=== PATIENT | female | born 1965 | race American Indian/Alaskan Native ===

== ENCOUNTER 2016-04-02 10:08 | Outpatient (CLI) | payer BC ==
[2016-04-02 10:21] LABS: Hematocrit 44.6 % (30.3-42.9); Hemoglobin 14.6 gm/dl (10.1-14.3); Mean Corpuscular HGB Conc 33 % (30-34); Mean Corpuscular Hemoglobin 29 pg (28-32); Mean Corpuscular Volume 89 fl (79-97); Platelet Count 287 K/mm3 (140-440); Red Blood Count 5.04 M/mm3 (3.65-5.03); Red Cell Distribution Width 13.9 % (13.2-15.2); White Blood Count 9.7 K/mm3 (4.5-11.0)
[2016-04-02 10:40] LABS: Albumin 4.1 g/dL (3.9-5); Albumin/Globulin Ratio 1.3 %; BUN/Creatinine Ratio 16.87; Bilirubin,Total 0.2 mg/dL (0.1-1.2); Calcium 9.2 mg/dL (8.4-10.2); Chloride 102.5 mmol/L (98-107); Potassium 5.2 mmol/L (3.6-5.0); Total Protein 7.3 g/dL (6.3-8.2)
== END 2016-04-02 10:09 | disposition home or self-care (01) ==
LOC: LABHHL 10:08
PROVIDERS: ATTEND Specialist
DX: Z01.812 Encounter for preprocedural laboratory examination (principal); K30 Functional dyspepsia
CPT/HCPCS: 36415; 80053; 83690; 85027

== ENCOUNTER 2016-04-07 07:13 | Day surgery (SDC) | payer BC, OTHER ==
[~2016-04-07 07:13] MED LIST: WATER FOR IRRIG STERILE IR ONE
[2016-04-07] MEDS ORDERED: DIPRIVAN 10 MG/ML IV ONE ×3 (07:30→07:37)
[2016-04-07] MEDS ORDERED: NACL 0.9% 1000 ML 1,000 ML IV SCH (08:00)
--- NOTE | 2016-04-07 08:30 | Anesthesia Consultation ---
Anesthesia Consult and Med Hx Date of service: 04/07/16 - Airway Anesthetic Teeth Evaluation: Good ROM Head & Neck: Adequate Mental/Hyoid Distance: Inadequate Mallampati Class: Class II Intubation Access Assessment: Probably Good - Pulmonary Exam CTA: Yes - Cardiac Exam Cardiac Exam: RRR - Pre-Operative Health Status ASA Pre-Surgery Classification: ASA3 Proposed Anesthetic Plan: MAC - Pulmonary Hx Smoking: Yes (Quit 30yrs ago ) - Cardiovascular System Hx Hypertension: Yes - Central Nervous System Hx Psychiatric Problems: No - Gastrointestinal Hx Ulcer: Yes (12/2012, DR. 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
--- NOTE | 2016-04-07 08:31 | Anesthesia Day of Surgery ---
Anesthesia Day of Surgery - Day of Surgery Patient Examined: Yes Patient H&P Reviewed: Yes Patient is NPO: Yes
[2016-04-07] MEDS ORDERED: XYLOCAINE MPF 2% ONE (09:33)
[2016-04-07 10:08] VITALS: BP 108/68
--- NOTE | 2016-04-07 10:42 | Post Anesthesia Evaluation ---
- Post Anesthesia Evaluation Patient Participated: Yes Airway Patent: Yes Stable Respiratory Function: Yes Nausea/Vomiting: No Temp > 96.8F: Yes Pain Manageable: Yes Adequeate Hydration: Yes Anesthesia Complications: No Block Receding Appropriately: Not Applicable Patient on Ventilator: No
== END 2016-04-07 07:14 | disposition home or self-care (01) ==
LOC: GIO 07:13
PROVIDERS: ATTEND Specialist
DX: K21.0 Gastro-esophageal reflux disease with esophagitis (principal); K44.9 Diaphragmatic hernia without obstruction or gangrene; I10 Essential (primary) hypertension; E03.9 Hypothyroidism, unspecified; E78.00 Pure hypercholesterolemia, unspecified; E66.01 Morbid (severe) obesity due to excess calories; Z68.36 Body mass index [BMI] 36.0-36.9, adult; Z90.710 Acquired absence of both cervix and uterus; Z98.890 Other specified postprocedural states; Z87.891 Personal history of nicotine dependence; Z82.49 Family history of ischemic heart disease and other diseases of the circulatory system; Z82.3 Family history of stroke
CPT/HCPCS: 43235; J2704; J7030

== ENCOUNTER 2016-04-14 06:47 | Inpatient (IN) | payer BC, MEDICARE ==
--- NOTE | 2016-04-07 11:16 | Anesthesia Consultation ---
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 ALLEN- GI) Hx Gastroesophageal Reflux Disease: Yes - Endocrine Hx Renal Disease: Yes (Elevated labs, r/t BP meds, - FIELD SALES CONSULTANT) Hx Hypothyroidism: Yes - Other Systems Hx Cancer: No
[2016-04-07 11:52] LABS: Basophils % (Auto) 0.4 % (0.0-1.8); Hematocrit 43.6 % (30.3-42.9); Hemoglobin 14.2 gm/dl (10.1-14.3); Mean Corpuscular HGB Conc 33 % (30-34); Mean Corpuscular Hemoglobin 29 pg (28-32); Mean Corpuscular Volume 88 fl (79-97); Platelet Count 261 K/mm3 (140-440); Red Blood Count 4.97 M/mm3 (3.65-5.03); Red Cell Distribution Width 13.6 % (13.2-15.2); White Blood Count 10.1 K/mm3 (4.5-11.0)
[2016-04-07 12:27] LABS: Albumin/Globulin Ratio 1.3 %; BUN/Creatinine Ratio 16.66; Bilirubin,Total 0.3 mg/dL (0.1-1.2); Calcium 9.4 mg/dL (8.4-10.2); Chloride 102.6 mmol/L (98-107); Potassium 4.4 mmol/L (3.6-5.0); Total Protein 7.1 g/dL (6.3-8.2)
--- NOTE | 2016-04-13 15:52 | Admit Criteria Form ---
Admission Criteria Documentation: AMBULATORY SURGERY EXCEPTION CRITERIA Ambulatory Surgery Exception Criteria ( Place 'X' for any and all applicable criteria): Surgery or procedure performed on ambulatory basis may require inpatient stay for[A] ANY ONE of the following(1)(2)(3)(4)(5)(6)(7)(8)(9): [X] I. A preoperative situation, condition, or finding that warrants inpatient stay as indicated by ANY ONE of the following: [X] a) Inpatient care needed because of severity of a disease or condition rather than the surgery (eg, severe cardiac or respiratory disease, severe infection) (15) (16 ) (17) (18) [] b) Emergent procedure (eg, angioplasty for acute ischemia)(19) [] c) Complex surgical approach or situation as indicated by ANY ONE of the following(3): [] i) Open approach needed instead of usual endoscopic, transcatheter, or other less invasive procedure [] ii) Difficult approach because of previous operation [] iii) Airway monitoring required after open neck procedures(20)(21) [] iv) Large mass requiring unusually extensive dissection [] v) Additional complicating feature requiring inpatient care (eg, drain management)(22(23): [] d) Major surgery in a pt with high anesthetic risk as indicated by ANY ONE of the following (2)(3)(5)(7)(8): [] i) ASA risk class III or higher (severe systemic disease impairing function) [D] [] ii) Advanced age (eg, older than 85 years)(14)(24) [] iii) Symptomatic heart failure(25) [] iv) Symptomatic asthma or COPD(8)(21) [] v) Morbid obesity with hemodynamic or respiratory problems(20)( 21)(26)(27) [] vi) Obstructive sleep apnea(20)(21) [] vii) Former premature infants who are younger than 60 weeks [] viii) High risk for severe postoperative abnormalities (eg, severe postoperative hypocalcemia after parathyroidectomy for severe hyperparathyroidism)(27)( 28) [] ix) Unstable angina(25) [] e) Drug-related risk requiring inpatient stay as indicated by ANY ONE of the following(5)(10)(14)(32)(33) [] i) Procedure requires discontinuing drugs or other therapy (eg , antiarrhythmic medication, antiseizure medication), which necessitates inpatient observation or treatment.(18)(31) [] ii) Major surgery and high risk drug use as indicated by ANY ONE of the following: [] 1) Active abuse of cocaine or similar drug [] 2) Monoamine oxidase inhibitor use [] 3) Other drug identified as posing risk [] f) Inadequate outpatient care situation as indicated by ANY ONE of the following(5)(10)(14)(32)(33) [] i) Patient lives remote from medical facility and procedure has urgent complication potential, and temporary nearby residence cannot be arranged [] ii) Patient will have postprocedure incapacitation and inadequate assistance at home, or alternative level of care cannot be arranged. [] iii) Patient will have long general anesthesia or procedure side effect resolution time, and competent person to stay with patient on first postoperative night at home or alternative level of care cannot be arranged. []iv) Other inadequate outpatient situation that cannot be handled by other means [] II. A perioperative event, condition, or finding that warrants inpatient stay as indicated by ANY ONE of the following (1)(2)(3): [] a) Inadequate physiologic recovery: cardiovascular, respiratory, or hemodynamic status not normal or near preoperative baseline(18) [] b) Hemodynamic instability [] c) Patient not alert with near normal or baseline mental status [] d) Temperature not normal or as expected and not appropriate for outpatient treatment of condition [] e) Ambulatory or appropriate activity level status not yet achieved post procedure [E](34)(35)(36) [] f) Operative site not appropriate (eg, unexpected or excessive drainage or bleeding) [] g) Postoperative effects not resolved or adequately managed (eg, significant pain or vomiting not appropriate for outpatient or next level of care)(10)(12) [] h) Complicating features requiring inpatient care as indicated by ANY ONE of the following(37): [] i) Severe complications of procedure (eg, bowel injury, airway compromise, vascular injury,severe hemorrhage) [] ii) Extensive (eg, dissection far beyond usual scope of procedure ) or prolonged (eg, 120 minutes beyond usual) surgery needed requiring inpatient postoperative care [] iii) Conversion to an open or complex procedure that requires inpatient care (eg, open vs laparoscopic cholecystectomy, abdominal vs vaginal hysterectomy)(38) [] iv) Comorbid condition or test result identified during or post procedure that requires inpatient care (7) [] v) Malignant hyperthermia(30) [] vi) Other complicating feature requiring inpatient care(22)(23) Inpatient stay may be needed until ALL of the following are present (1)(2)(3)(4) (5)(6)(10)(14)(33)(40): []a) Physiologic recovery: cardiovascular, respiratory, and hemodynamic status normal or near preoperative baseline []b) Hemodynamic stability []c) Patient alert, with near normal or baseline mental status []d) Temperature appropriate: patient afebrile or temperature appropriate for outpt treatment of condition []e) Activity level appropriate: ambulatory or appropriate activity level post procedure []f) Operative site appropriate as indicated by ALL of the following: []i) Site dry or with expected drainage []ii) Any blood noted is as expected for procedure. []g) Postoperative effects resolved or managed as indicated by ALL of the following: []i) Pain management appropriate for outpatient (or next level of) care(10) []ii) Minimal nausea and vomiting: if present, successfully treated with oral medication(12) []iii) Headache, dizziness, or drowsiness (if present) are mild. []h) Voiding status acceptable as indicated by ANY ONE of the following: []i) Voiding spontaneously []ii) No voiding but instructions given for follow-up in 6 to 8 hours []iii) Urinary catheter in place, and instructions given for follow-up []i) Complicating features requiring inpatient care manageable at a lower level of care(37) []j) Comorbid conditions manageable at a lower level of care(37) The original [employer] content created by [employer] has been revised. The portions of the content which have been revised are identified through the use of italic text or in bold, and [employer] has neither reviewed nor approved the modified material. All other unmodified content is copyright [employer]. Please see references footnoted in the original [employer] edition 2016 Admission Criteria Met: Yes
[~2016-04-14 06:47] MED LIST changes: +MARCAINE-EPI 0.5%-1:200,000 INFILTRATI ONE; +NACL 0.9% IR ONE; -WATER FOR IRRIG STERILE IR ONE; +XYLOCAINE 1% 20 mL INFILTRATI ONE
[2016-04-14] MEDS ORDERED: PEPCID IV NR (07:00)
[2016-04-14] MEDS ORDERED: NACL 0.9% 1000 ML 1,000 ML IV SCH (07:00)
[2016-04-14] MEDS ORDERED: VERSED IV NR (07:00)
[2016-04-14] MEDS ORDERED: TRANSDERM-SCOP TD NR (09:00)
[2016-04-14] MEDS ORDERED: ANCEF/STERILE WATER 2 GM/20 ML 2 GM/20 ML SYRINGE IV SCH (13:14)
[2016-04-14] MEDS ORDERED: NORCO 5/325 PO PRN (13:45)
[2016-04-14] MEDS ORDERED: FLAGYL 500 MG/100 ML 500 MG/100 ML BAG IV NR (14:00)
[2016-04-14] MEDS ORDERED: LOVENOX SUB-Q NR (14:00)
--- NOTE | 2016-04-14 14:02 | Anesthesia Day of Surgery ---
Anesthesia Day of Surgery - Day of Surgery Patient Examined: Yes Patient H&P Reviewed: Yes Patient is NPO: Yes Beta Blockers: Yes (tooklast night, will treat as appropriate in OR))
[2016-04-14] MEDS ORDERED: DIPRIVAN 10 MG/ML IV ONE (14:07)
[2016-04-14] MEDS ORDERED: DILAUDID ONE (14:08)
[2016-04-14] MEDS ORDERED: ZEMURON IV ONE ×2 (14:11→16:01)
[2016-04-14] MEDS ORDERED: XYLOCAINE MPF 2% ONE (14:11)
[2016-04-14] MEDS ORDERED: NACL 0.9% IR ONE (15:41)
[2016-04-14] MEDS ORDERED: ePHEDrine SULFATE ONE (15:55)
[2016-04-14] MEDS ORDERED: NACL 0.9% 1000 ML 1,000 ML ONE (16:01)
[2016-04-14] MEDS ORDERED: MARCAINE-EPI 0.5%-1:200,000 INFILTRATI ONE (16:30)
[2016-04-14] MEDS ORDERED: XYLOCAINE 1% 20 mL INFILTRATI ONE (16:30)
[2016-04-14] MEDS ORDERED: ZOFRAN ONE (16:36)
[2016-04-14] MEDS ORDERED: BLOXIVERZ ONE (16:36)
[2016-04-14] MEDS ORDERED: ROBINUL ONE (16:36)
[2016-04-14] MEDS: DILAUDID IV PRN ×7 (17:12→19:57)
--- NOTE | 2016-04-14 17:34 | Post Anesthesia Evaluation ---
- Post Anesthesia Evaluation Patient Participated: Yes Airway Patent: Yes Stable Respiratory Function: Yes Temp > 96.8F: Yes Pain Manageable: Yes Adequeate Hydration: Yes Anesthesia Complications: No Block Receding Appropriately: Not Applicable
[2016-04-14] MEDS: ZOFRAN IV PRN (18:21)
[2016-04-14] MEDS: LOVENOX SUB-Q SCH (21:57)
[2016-04-14] MEDS: TORADOL IV SCH (23:00)
[2016-04-15] MEDS: LACTATED RINGERS 1,000 ML IV SCH ×2 (00:21→10:36)
[2016-04-15] MEDS: DILAUDID IV PRN ×4 (01:00→12:35)
[2016-04-15 03:40] LABS: Bilirubin,Urine NEG (Negative); Blood,Urine NEG (Negative); Ketones,Urine 20 mg/dL (Negative); Leukocyte Esterase,Urine NEG (Negative); Mucus,Urine FEW /HPF; Nitrite,Urine NEG (Negative); Protein,Urine <15 mg/dL mg/dL (Negative); Urobilinogen,Urine < 2.0 mg/dL (<2.0)
[2016-04-15] MEDS: ZOFRAN IV PRN ×2 (04:13→09:50)
[2016-04-15 06:53] LABS: Magnesium 2.1 mg/dL (1.7-2.3); Phosphorous 4.2 mg/dL (2.5-4.5)
[2016-04-15] MEDS: TORADOL IV SCH (07:11)
[2016-04-15] MEDS: LOVENOX SUB-Q SCH (10:37)
[2016-04-15 10:39] LABS: Basophils % (Auto) 0.2 % (0.0-1.8); Eosinophils % (Auto) 0.1 % (0.0-4.3); Hematocrit 38.8 % (30.3-42.9); Hemoglobin 12.5 gm/dl (10.1-14.3); Mean Corpuscular HGB Conc 32 % (30-34); Mean Corpuscular Hemoglobin 29 pg (28-32); Mean Corpuscular Volume 88 fl (79-97); Platelet Count 203 K/mm3 (140-440); Red Blood Count 4.39 M/mm3 (3.65-5.03); Red Cell Distribution Width 14.2 % (13.2-15.2); White Blood Count 10.7 K/mm3 (4.5-11.0)
[2016-04-15 11:04] LABS: Albumin 3.5 g/dL (3.9-5); Albumin/Globulin Ratio 1.3 %; BUN/Creatinine Ratio 12.85; Bilirubin,Total 0.4 mg/dL (0.1-1.2); Calcium 8.4 mg/dL (8.4-10.2); Chloride 102.4 mmol/L (98-107); Potassium 4.2 mmol/L (3.6-5.0); Total Protein 6.3 g/dL (6.3-8.2)
[2016-04-15 12:36] VITALS: BP 183/85
--- NOTE | 2016-04-15 13:27 | Discharge Summary ---
Providers - Providers Date of Admission: 04/14/16 09:30 Date of discharge: 04/15/16 Attending physician: JANEL GARDNER Primary care physician: ALICIA CUMMINGS Hospitalization Reason for admission: Post op observation Condition: Stable Hospital course: Patient admited for overnight observation after surgery tolerating bariatric stage 1 diet and ambulating ready for discharge Disposition: DISCHARGED TO HOME OR SELFCARE Core Measure Documentation - Palliative Care Palliative Care/ Comfort Measures: Not Applicable - Core Measures Any of the following diagnoses?: none Exam - Constitutional Vitals: Temp Pulse Resp BP Pulse Ox 98.8 F 71 18 183/85 100 04/15/16 12:34 04/15/16 12:34 04/15/16 12:34 04/15/16 12:34 04/15/16 08:51 General appearance: Present: no acute distress, well-nourished - Respiratory Respiratory effort: normal Respiratory: bilateral: CTA - Cardiovascular Heart Sounds: Present: S1 & S2. Absent: rub, click - Abdominal General gastrointestinal: Present: other (soft, wounds c/d/i. TTP around wounds) - Neurologic Neurologic: CNII-XII intact, moves all extremities Plan Activity: other (no heavy lifting) Diet: other (bariatric stage 1) Wound: open to air Special Instructions: no heavy lifting Follow up with: ALICIA CUMMINGS MD [Primary Care Provider] - 7 Days
== END 2016-04-15 15:00 | disposition home or self-care (01) | DRG 621 ==
LOC: 3A 09:30 → 2B-SURG 17:13
PROVIDERS: ADMIT Specialist; ATTEND Specialist
PROC: 0DB64Z3 Excision of Stomach, Percutaneous Endoscopic Approach, Vertical (ICD-10-PCS; principal; 2016-04-14)
PROC: 0BQR4ZZ (ICD-10-PCS; 2016-04-14)
PROC: 0BQS4ZZ (ICD-10-PCS; 2016-04-14)
DX: E66.01 Morbid (severe) obesity due to excess calories (principal); K44.9 Diaphragmatic hernia without obstruction or gangrene; I10 Essential (primary) hypertension; E78.00 Pure hypercholesterolemia, unspecified; E03.9 Hypothyroidism, unspecified; K21.9 Gastro-esophageal reflux disease without esophagitis; Z88.6 Allergy status to analgesic agent; Z91.012 Allergy to eggs; Z98.890 Other specified postprocedural states; Z90.710 Acquired absence of both cervix and uterus; Z68.37 Body mass index [BMI] 37.0-37.9, adult; Z82.49 Family history of ischemic heart disease and other diseases of the circulatory system; Z82.3 Family history of stroke; Z87.891 Personal history of nicotine dependence; Z79.899 Other long term (current) drug therapy
CPT/HCPCS: 36415; 80053; 81001; 83735; 84100; 85025; 88304; 88307; 88342; 94760; C9250; J0690; J1170; J1650; J1885; J2250; J2405; J2704; J2710; J7030; J7120

== ENCOUNTER 2017-05-13 18:02 | Emergency (ER) | payer BC, MEDICARE ==
[2017-05-13 20:52] LABS: Basophils % (Auto) 0.6 % (0.0-1.8); Eosinophils # (Auto) 0.2 K/mm3 (0.0-0.4); Eosinophils % (Auto) 3.5 % (0.0-4.3); Hematocrit 41.7 % (30.3-42.9); Hemoglobin 13.6 gm/dl (10.1-14.3); Lymphocytes # (Auto) 2.1 K/mm3 (1.2-5.4); Lymphocytes % (Auto) 30.9 % (13.4-35.0); Mean Corpuscular HGB Conc 33 % (30-34); Mean Corpuscular Hemoglobin 30 pg (28-32); Mean Corpuscular Volume 91 fl (79-97); Monocytes # (Auto) 0.6 K/mm3 (0.0-0.8); Monocytes % (Auto) 8.9 % (0.0-7.3); Platelet Count 243 K/mm3 (140-440); Red Blood Count 4.61 M/mm3 (3.65-5.03)
[2017-05-13] MEDS ORDERED: ALUM-MAG HYDROX-SIMETH 200-200-20MG/5ML PO ONE (21:00)
[2017-05-13] MEDS ORDERED: LIDOCAINE VISCOUS 2% PO ONE (21:00)
[2017-05-13] MEDS ORDERED: ZOFRAN IV ONE (21:01)
[2017-05-13] MEDS ORDERED: DILAUDID IM ONE (21:01)
[2017-05-13 23:01] LABS: Bilirubin,Urine NEG (Negative); Blood,Urine NEG (Negative); Color,Urine Yellow (Yellow); Mucus,Urine FEW /HPF; Protein,Urine <15 mg/dL mg/dL (Negative); Urobilinogen,Urine < 2.0 mg/dL (<2.0)
--- NOTE | 2017-05-13 23:32 | Cat Scan Report ---
FINAL REPORT PROCEDURE: CT ABDOMEN PELVIS WO CON TECHNIQUE: Computerized axial tomography of the abdomen and pelvis was performed without intravenous contrast. This study is performed without intravascular contrast material and its sensitivity for abdominal and pelvic pathology, including neoplasms, inflammation, abscess, free fluid, thrombosis, arterial dissection and infarction, is reduced compared with a contrast enhanced study. HISTORY: epigastric pain, hx of sayda and gastric sleeve COMPARISON: No prior studies are available for comparison. FINDINGS: Visualized lower thorax: No significant abnormality. Liver: The liver size is normal. There are few cysts identified within the liver. 2.5 centimeters cyst in the lateral upper right lobe of the liver is noted. 1.2 centimeters cyst identified in the anterior left lobe of the liver.. Spleen: Normal size and attenuation. Gallbladder and biliary system: The gallbladder is absent. No dilatation of the biliary ductal system. Pancreas: Normal. Adrenals: Normal. Kidneys: Both kidneys have a normal size. No hydronephrosis. 1 centimeter right renal cortical cysts suspected off the inferior right renal cortex. GI tract: The stomach shows evidence of previous surgery. The small bowel has a normal caliber without obstruction. Oral contrast reaches the colon. There is moderate fecal debris throughout the colon. The colon is slightly distended. Constipation is suspected.. Lymph nodes and mesentery: Normal. Vasculature: Mild atherosclerosis of the aorta and branching vessels. Bladder: Normal. Reproductive organs: The uterus is absent. No pelvic masses.. Peritoneum: No free fluid. Musculoskeletal structures: No significant abnormality. Other: None. IMPRESSION: There is no evidence of intestinal or urinary tract obstruction. Moderate fecal debris throughout the colon with some distension of the colon with gas, constipation is suspected. Previous cholecystectomy. Liver cysts are noted..
--- NOTE | 2017-05-13 23:47 | Emergency Department Report ---
ED Abdominal Pain HPI - General Chief Complaint: Abdominal Pain Stated Complaint: ABD PAIN Time Seen by Provider: 05/13/17 20:51 Source: patient Mode of arrival: Ambulatory Limitations: No Limitations - History of Present Illness Initial Comments: 52-year-old female with a past medical history of gastric sleeve surgery, cholecystectomy, hysterectomy, hypertension, kidney stones, and renal insufficiency presents to the hospital pending the epigastric pain for greater than 2 weeks. Pain has been gradually worsening with at least 3 episodes of severe pain. Symptoms typically start after eating. This evening she ate fish and 30 minutes later she began having sharp epigastric pain. Pain was rated moderate to severe in intensity prior to arrival but has since improved. Patient also feels like she has excessive gas. Patient has been taking a PPI as well as Tums intermittently without improvement. Patient complains of nausea without vomiting, melena, hematochezia, diarrhea, or fever. Positive reflux symptoms reported worse with lying supine. Her GI doctor is Dr. Bolden and Roderick is her bariatric surgeon Severity scale (0 -10): 6 - Related Data Home Medications Medication Instructions Recorded Confirmed Last Taken Nebivolol HCl [Bystolic] 10 mg PO BID 01/11/13 04/14/16 04/13/16 23:00 Spironolactone 100 mg PO BID 01/11/13 04/14/16 04/13/16 Aspirin [Adult Low Dose Aspirin EC] 81 mg PO QDAY 04/06/16 04/14/16 04/01/16 Bee Pollen 550 mg PO QDAY 04/06/16 04/14/16 03/17/16 Clonidine HCl 0.1 mg PO QDAY 04/06/16 04/14/16 04/13/16 Levothyroxine Sodium [Synthroid] 50 mcg PO QDAY 04/06/16 04/14/16 04/13/16 Levothyroxine Sodium [Synthroid] 200 mcg PO QDAY 04/06/16 04/14/16 04/13/16 Multivit-Min36/Iron/Folic Acid 1 each PO QDAY 04/06/16 04/14/16 03/17/16 [Geritol Complete Tablet] Omeprazole 400 mg PO QDAY 04/06/16 04/14/16 04/07/16 Tizanidine HCl 4 mg PO HS 04/06/16 04/14/16 04/13/16 Tramadol HCl [traMADol] 100 mg PO TID PRN 04/06/16 04/14/16 04/13/16 Previous Rx's Medication Instructions Recorded Last Taken Type HYDROcodone/APAP 5-325 [Laurel 1 each PO Q6HR PRN #10 tablet 05/14/17 Unknown Rx 5/325] Promethazine [Phenergan TAB] 25 mg PO Q6HR PRN #30 tab 05/14/17 Unknown Rx Sucralfate [Carafate] 1 gm PO Q6HR #10 day 05/14/17 Unknown Rx Allergies Allergy/AdvReac Type Severity Reaction Status Date / Time egg Allergy Swelling Verified 01/13/13 07:00 morphine Allergy Rash Verified 01/13/13 07:00 ED Review of Systems ROS: Stated complaint: ABD PAIN Other details as noted in HPI Comment: All other systems reviewed and negative Other: Constitutional: No fevers chills Eyes: No eye pain visual changes ENT: No ear pain or throat pain Neck: Denies pain Respiratory: Denies cough wheezing shortness of breath Cardiovascular: Denies chest pain, palpitations, syncope GI: As per HPI : Denies dysuria Musculoskeletal: Denies back pain, Skin: Denies rash, lesions, erythema Neurologic: Denies headache, numbness, weakness Psychiatric: Denies suicidal ideation, hallucinations ED Past Medical Hx - Past Medical History Hx Hypertension: Yes (FOR 18 YRS, DR. 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 gastric sleeve surgery April 2016. Thyroidectomy - Social History Smoking Status: Never Smoker Substance Use Type: None - Medications Home Medications: Home Medications Medication Instructions Recorded Confirmed Last Taken Type Nebivolol HCl [Bystolic] 10 mg PO BID 01/11/13 04/14/16 04/13/16 23:00 History Spironolactone 100 mg PO BID 01/11/13 04/14/16 04/13/16 History Aspirin [Adult Low Dose Aspirin EC] 81 mg PO QDAY 04/06/16 04/14/16 04/01/16 History Bee Pollen 550 mg PO QDAY 04/06/16 04/14/16 03/17/16 History Clonidine HCl 0.1 mg PO QDAY 04/06/16 04/14/16 04/13/16 History Levothyroxine Sodium [Synthroid] 50 mcg PO QDAY 04/06/16 04/14/16 04/13/16 History Levothyroxine Sodium [Synthroid] 200 mcg PO QDAY 04/06/16 04/14/16 04/13/16 History Multivit-Min36/Iron/Folic Acid 1 each PO QDAY 04/06/16 04/14/16 03/17/16 History [Geritol Complete Tablet] Omeprazole 400 mg PO QDAY 04/06/16 04/14/16 04/07/16 History Tizanidine HCl 4 mg PO HS 04/06/16 04/14/16 04/13/16 History Tramadol HCl [traMADol] 100 mg PO TID PRN 04/06/16 04/14/16 04/13/16 History HYDROcodone/APAP 5-325 [Laurel 1 each PO Q6HR PRN #10 tablet 05/14/17 Unknown Rx 5/325] Promethazine [Phenergan TAB] 25 mg PO Q6HR PRN #30 tab 05/14/17 Unknown Rx Sucralfate [Carafate] 1 gm PO Q6HR #10 day 05/14/17 Unknown Rx ED Physical Exam - General Limitations: No Limitations - Other Other exam information: General: No limitations, patient is alert in no acute distress Head exam: Atraumatic, normocephalic Eyes exam: Normal appearance ENT: Moist mucous membrane, normal oropharynx Neck exam: Normal inspection, full range of motion, no meningismus nontender Respiratory exam: Clear to auscultation bilateral, no wheezes, rales, crackles Cardiovascular: Normal rate and rhythm, normal heart sounds Abdomen: Soft, nondistended, epigastric tenderness, with normal bowel sounds, no rebound, or guarding Extremity: Full range of motion normal inspection no deformity Back: Normal Inspection, full range of motion, no tenderness Neurologic: Alert, oriented x3, cranial nerves intact, no motor or sensory deficit Psychiatric: normal affect, normal mood Skin: Warm, dry, intact ED Course Vital Signs 05/13/17 05/13/17 05/13/17 18:12 20:37 20:42 Temperature 98.1 F 98.0 F Pulse Rate 81 64 63 Respiratory 16 15 18 Rate Blood Pressure 186/116 Blood Pressure 176/96 [Right] O2 Sat by Pulse 96 98 100 Oximetry 05/13/17 05/13/17 05/13/17 20:43 20:45 21:00 Temperature Pulse Rate 58 L 59 L Respiratory 18 9 L 10 L Rate Blood Pressure 176/96 164/96 Blood Pressure [Right] O2 Sat by Pulse 100 100 Oximetry 05/13/17 05/13/17 05/13/17 21:15 21:22 21:31 Temperature Pulse Rate 61 62 Respiratory 12 18 14 Rate Blood Pressure 164/96 164/96 Blood Pressure [Right] O2 Sat by Pulse 100 100 Oximetry 05/13/17 05/13/17 05/13/17 21:45 22:01 22:15 Temperature Pulse Rate 70 81 86 Respiratory 13 12 21 Rate Blood Pressure 164/96 186/99 186/99 Blood Pressure [Right] O2 Sat by Pulse 100 100 93 Oximetry 05/13/17 05/13/17 05/13/17 22:45 23:00 23:15 Temperature Pulse Rate 75 73 Respiratory 16 16 Rate Blood Pressure 186/99 177/103 177/103 Blood Pressure [Right] O2 Sat by Pulse 100 100 100 Oximetry 05/13/17 05/13/17 05/14/17 23:31 23:45 00:00 Temperature Pulse Rate 65 64 62 Respiratory 14 12 8 L Rate Blood Pressure 186/99 186/99 165/94 Blood Pressure [Right] O2 Sat by Pulse 100 100 100 Oximetry - Reevaluation(s) Reevaluation #1: 05/13/17 23:15 Patient received viscous lidocaine, Maalox, Dilaudid 0.5 mg and Zofran with improvement - Consultations Consultation #1: 05/14/17 01:10 Case d/w Dr Richard her GI doctor (currently [place] affiliated) rec carafate and f/ u ED Medical Decision Making - Lab Data Result diagrams: 05/13/17 20:37 05/13/17 20:37 Lab Results 05/13/17 05/13/17 05/13/17 Range/Units 20:37 20:37 20:37 WBC 6.9 (4.5-11.0) K/mm3 RBC 4.61 (3.65-5.03) M/mm3 Hgb 13.6 (10.1-14.3) gm/dl Hct 41.7 (30.3-42.9) % MCV 91 (79-97) fl MCH 30 (28-32) pg MCHC 33 (30-34) % RDW 16.0 H (13.2-15.2) % Plt Count 243 (140-440) K/mm3 Lymph % (Auto) 30.9 (13.4-35.0) % [place] % (Auto) 8.9 H (0.0-7.3) % Eos % (Auto) 3.5 (0.0-4.3) % Baso % (Auto) 0.6 (0.0-1.8) % Lymph # 2.1 (1.2-5.4) K/mm3 [place] # 0.6 (0.0-0.8) K/mm3 Eos # 0.2 (0.0-0.4) K/mm3 Baso # 0.0 (0.0-0.1) K/mm3 Seg Neutrophils % 56.1 (40.0-70.0) % Seg Neutrophils # 3.9 (1.8-7.7) K/mm3 Sodium 143 (137-145) mmol/L Potassium 4.1 (3.6-5.0) mmol/L Chloride 102.8 (98-107) mmol/L Carbon Dioxide 25 (22-30) mmol/L Anion Gap 19 mmol/L BUN 19 H (7-17) mg/dL Creatinine 1.3 H (0.7-1.2) mg/dL Estimated GFR 52 ml/min BUN/Creatinine Ratio 15 % Glucose 89 (65-100) mg/dL Calcium 9.0 (8.4-10.2) mg/dL Total Bilirubin 0.30 (0.1-1.2) mg/dL AST 21 (5-40) units/L ALT 34 (7-56) units/L Alkaline Phosphatase 48 (35-129) units/L Total Protein 6.6 (6.3-8.2) g/dL Albumin 4.0 (3.9-5) g/dL Albumin/Globulin Ratio 1.5 % Lipase 26 (13-60) units/L Urine Color (Yellow) Urine Turbidity (Clear) Urine pH (5.0-7.0) Ur Specific [place] (1.003-1.030) Urine Protein (Negative) mg/dL Urine Glucose (UA) (Negative) mg/dL Urine Ketones (Negative) mg/dL Urine Blood (Negative) Urine Nitrite (Negative) Urine Bilirubin (Negative) Urine Urobilinogen (<2.0) mg/dL Ur Leukocyte Esterase (Negative) Urine WBC (Auto) (0.0-6.0) /HPF Urine RBC (Auto) (0.0-6.0) /HPF U Epithel Cells (Auto) (0-13.0) /HPF Urine Mucus /HPF 05/13/17 Range/Units 22:46 WBC (4.5-11.0) K/mm3 RBC (3.65-5.03) M/mm3 Hgb (10.1-14.3) gm/dl Hct (30.3-42.9) % MCV (79-97) fl MCH (28-32) pg MCHC (30-34) % RDW (13.2-15.2) % Plt Count (140-440) K/mm3 Lymph % (Auto) (13.4-35.0) % Kent[place] % (Auto) (0.0-7.3) % Eos % (Auto) (0.0-4.3) % Baso % (Auto) (0.0-1.8) % Lymph # (1.2-5.4) K/mm3 [place] # (0.0-0.8) K/mm3 Eos # (0.0-0.4) K/mm3 Baso # (0.0-0.1) K/mm3 Seg Neutrophils % (40.0-70.0) % Seg Neutrophils # (1.8-7.7) K/mm3 Sodium (137-145) mmol/L Potassium (3.6-5.0) mmol/L Chloride (98-107) mmol/L Carbon Dioxide (22-30) mmol/L Anion Gap mmol/L BUN (7-17) mg/dL Creatinine (0.7-1.2) mg/dL Estimated GFR ml/min BUN/Creatinine Ratio % Glucose (65-100) mg/dL Calcium (8.4-10.2) mg/dL Total Bilirubin (0.1-1.2) mg/dL AST (5-40) units/L ALT (7-56) units/L Alkaline Phosphatase (35-129) units/L Total Protein (6.3-8.2) g/dL Albumin (3.9-5) g/dL Albumin/Globulin Ratio % Lipase (13-60) units/L Urine Color Yellow (Yellow) Urine Turbidity Clear (Clear) Urine pH 5.0 (5.0-7.0) Ur Specific [place] 1.033 H (1.003-1.030) Urine Protein <15 mg/dl (Negative) mg/dL Urine Glucose (UA) Neg (Negative) mg/dL Urine Ketones Tr (Negative) mg/dL Urine Blood Neg (Negative) Urine Nitrite Neg (Negative) Urine Bilirubin Neg (Negative) Urine Urobilinogen < 2.0 (<2.0) mg/dL Ur Leukocyte Esterase Neg (Negative) Urine WBC (Auto) 1.0 (0.0-6.0) /HPF Urine RBC (Auto) 3.0 (0.0-6.0) /HPF U Epithel Cells (Auto) 2.0 (0-13.0) /HPF Urine Mucus Few /HPF - EKG Data -: EKG Interpreted by [facility] EKG shows normal: sinus rhythm, axis (-10), QRS complexes (84), ST-T waves (no st elevation or T inversion) Rate: normal (78) - Radiology Data Radiology results: report reviewed CT abdomen and pelvis by mouth contrast: No evidence of interstitial or urinary tract obstruction. Moderate fecal debris throughout the colon with some distention of the colon with gas. Constipation is suspected. Previous cholecystectomy. Liver cysts - Medical Decision Making Patient had ongoing chronic epigastric pain worse with meals that fluctuates in intensity. CT and labs do not reveal any acute abnormality. She will be treated with Carafate in addition to her current PPI dose as recommended by her GI doctor. Outpatient follow-up recommended with GI. Attempts to call Dr. Vaughn group, but no response. This is not an acute bariatric emergency so patient may follow-up as well with Dr. Vaughn - Differential Diagnosis gastritis, pancreatitis, GERD, PUD, gastric sleeve dysfunction Critical Care Time: No Critical care attestation.: If time is entered above; I have spent that time in minutes in the direct care of this critically ill patient, excluding procedure time. ED Disposition Clinical Impression: Epigastric pain, Hx of gastric bypass, Hx of cholecystectomy, GERD ( gastroesophageal reflux disease), HTN (hypertension), Constipation Disposition: TO HOME OR SELFCARE Is pt being admited?: No Does the pt Need Aspirin: No Condition: Stable Instructions: Abdominal Pain (ED), Hypertension (ED), Gastroesophageal Reflux Disease (ED), Constipation (ED) Additional Instructions: Take the medication as prescribed. Please note that Laurel is a narcotic and may worsen constipation therefore take sparingly. Take your MiraLAX for constipation. Follow-up with your GI doctor and bariatric surgeon for further workup and evaluation. Please return is symptoms worsen as indicated by your discharge instructions. Continue to monitor blood pressure at home. Prescriptions: HYDROcodone/APAP 5-325 [Laurel 5/325] 1 each PO Q6HR PRN #10 tablet PRN Reason: Pain Promethazine [Phenergan TAB] 25 mg PO Q6HR PRN #30 tab PRN Reason: Nausea Sucralfate [Carafate] 1 gm PO Q6HR #10 day Referrals: MD Jose Manuel [Other] - 2-3 Days (GI doctor ) JANEL VAUGHN MD [Staff Physician] - 3-5 Days Time of Disposition: :31
[2017-05-14 00:09] VITALS: BP 165/94
[2017-05-14] MEDS ORDERED: DILAUDID IV ONE (00:11)
[2017-05-14] MEDS ORDERED: ZOFRAN ODT PO ONE (00:11)
== END 2017-05-14 01:44 | disposition home or self-care (01) ==
LOC: ED 18:02
DX: K21.9 Gastro-esophageal reflux disease without esophagitis (principal); I10 Essential (primary) hypertension; K59.00 Constipation, unspecified; R10.13 Epigastric pain
CPT/HCPCS: 36415; 74176; 80053; 81001; 83690; 85025; 93005; 93010; 96372; 96374; 96375; 99284; J1170; J2405; Q0162

== ENCOUNTER 2020-02-06 06:51 | Day surgery (SDC) | payer BC ==
[2020-02-06] MEDS ORDERED: SODIUM CHLORIDE 0.9% 1000 ML 1,000 ML ONE (08:19)
[2020-02-06] MEDS ORDERED: SODIUM CHLORIDE 0.9% 1000 ML 1,000 ML IV SCH (08:30)
[2020-02-06 09:09] VITALS: BP 144/78
[2020-02-06 09:36] LABS: Calcium 9.6 mg/dL (8.4-10.2)
[2020-02-06] MEDS ORDERED: ALUM-MAG HYDROXIDE-SIMETHICONE 200-200-20MG/5ML ORAL LIQD 30 ML ONE (11:06)
[2020-02-06] MEDS ORDERED: ALUM-MAG HYDROXIDE-SIMETHICONE 200-200-20MG/5ML ORAL LIQD 30 ML PO SCH (11:30)
[2020-02-06] MEDS ORDERED: PANTOPRAZOLE 40 MG TAB PO SCH (11:30)
--- NOTE | 2020-02-06 15:23 | Event Note ---
Date: 02/06/20 Patient was at the hospital for CT angiogram of the neck. Unfortunately, GFR has precipitously decreased to 23. Patient has an outpatient certified ophthalmic technologist Dr. Thompson. Dr. Thompson was contacted and he will follow up with the patient. Once patient's renal status has been stabilized, decision will be made for either conventional angiogram of the right carotid system versus CT angiogram based on residual renal status. This was discussed with the patient who understands. She will follow up with Dr. Thompson and then follow-up with Dr. Clement.
== END 2020-02-06 12:30 | disposition home or self-care (01) ==
LOC: CATHLABREC 06:51 → EDSTATUS 07:00 → CATHLABREC 12:30
PROVIDERS: ATTEND Surgery Vascular Surgery
DX: I65.23 Occlusion and stenosis of bilateral carotid arteries (principal); H40.9 Unspecified glaucoma; Z53.8 Procedure and treatment not carried out for other reasons; E78.00 Pure hypercholesterolemia, unspecified; I10 Essential (primary) hypertension; K21.9 Gastro-esophageal reflux disease without esophagitis; M19.90 Unspecified osteoarthritis, unspecified site; E03.9 Hypothyroidism, unspecified; Z80.8 Family history of malignant neoplasm of other organs or systems; Z91.012 Allergy to eggs; Z88.5 Allergy status to narcotic agent; Z79.899 Other long term (current) drug therapy; Z79.82 Long term (current) use of aspirin; Z90.49 Acquired absence of other specified parts of digestive tract; Z98.890 Other specified postprocedural states; Z87.442 Personal history of urinary calculi
CPT/HCPCS: 36415; 80048; 96360; 96361; J7030

== ENCOUNTER 2020-03-21 09:27 | Outpatient (CLI) | payer BC ==
[2020-03-21] MEDS ORDERED: SODIUM CHLORIDE 0.9% 1000 ML 1,000 ML ONE (09:44)
[2020-03-21] MEDS ORDERED: cloNIDine 0.1 MG TAB PO ONE (10:32)
[2020-03-21] MEDS ORDERED: traMADol 50 MG TAB PO ONE (11:31)
[2020-03-21] MEDS ORDERED: SODIUM CHLORIDE 0.9% 1000 ML 1,000 ML IV SCH (13:00)
[2020-03-21 13:07] VITALS: BP 169/86
--- NOTE | 2020-03-21 14:15 | Cat Scan Report ---
CT angio neck HISTORY: Angiogram Neck with or without contrast COMPARISON: None. TECHNIQUE: Routine CTA of the neck is performed. 3-D/MIP reformats were postprocessed. Percentage st enosis is determined by direct quantitative measurements of diseased internal carotid artery diameter compared with normal distal internal carotid artery reference segments or by criteria similar to KEVIN CET where applicable. All CT scans at this location are performed using CT dose reduction for ALARA b y means of automated exposure control. FINDINGS: Aortic arch: No significant abnormality. Cervical vertebral arteries: No occlusion or hemodynamically significant stenosis. Common Carotid arteries: No occlusion or hemodynamically significant stenosis. Internal carotid arteries: Atherosclerosis with approximately 50% proximal right internal carotid art shabana stenosis. Atherosclerosis without significant left internal carotid artery stenosis. No occlusion . Additional findings: None. IMPRESSION: 1. Atherosclerosis with approximately 50% right proximal internal carotid artery stenosis. Otherwise, no significant stenosis. Signer Name: Brooks Davalos MD Signed: 03/21/2020 2:10 PM Workstation Name: [id number]
== END 2020-03-21 16:48 | disposition home or self-care (01) ==
LOC: CATHLABREC 09:27
PROVIDERS: ATTEND Surgery Vascular Surgery
DX: I65.23 Occlusion and stenosis of bilateral carotid arteries (principal); K21.9 Gastro-esophageal reflux disease without esophagitis; E66.01 Morbid (severe) obesity due to excess calories
CPT/HCPCS: 36415; 70498; 82565; 84520; J7030; Q9967; 96360; 96361